=== PATIENT | male | born 1990 | race African-American/Black ===

== ENCOUNTER 2020-02-23 09:37 | Emergency (ER) | payer MEDICAID, OTHER ==
[~2020-02-23] VITALS: Ht 180.3 cm; Wt 74.0 kg
[2020-02-23] MEDS ORDERED: IBUPROFEN 600MG TABLET PO ONE (11:00)
[2020-02-23 11:40] VITALS: BP 148/90
== END 2020-02-23 11:54 | disposition home or self-care (01) ==
LOC: ER 09:37
DX: H60.92 Unspecified otitis externa, left ear (principal); R05 Cough; F12.10 Cannabis abuse, uncomplicated; F15.10 Other stimulant abuse, uncomplicated
CPT/HCPCS: 71045; 99283

== ENCOUNTER 2020-03-19 13:23 | Emergency (ER) | payer MEDICAID ==
[~2020-03-19] VITALS: Ht 170.2 cm; Wt 92.0 kg
[2020-03-19 13:25] VITALS: BP 140/86
[2020-03-19] MEDS ORDERED: AMOXICILLIN 500 MG CAPSULE PO ONE (15:30)
[2020-03-19] MEDS ORDERED: IBUPROFEN 600MG TABLET PO ONE (15:30)
== END 2020-03-19 15:45 | disposition home or self-care (01) ==
LOC: ER 13:23
DX: K12.2 Cellulitis and abscess of mouth (principal); K04.7 Periapical abscess without sinus; F15.10 Other stimulant abuse, uncomplicated; F12.10 Cannabis abuse, uncomplicated; Z98.890 Other specified postprocedural states
CPT/HCPCS: 99283